=== PATIENT | male | born 1970 | race Caucasian/White ===

== ENCOUNTER → 2021-03-15 | Outpatient (CLI) | payer MEDICAID | LOC: COL.RAD 12:19 | DX: R59.0 Localized enlarged lymph nodes (principal) ==

== ENCOUNTER → 2023-02-17 | Outpatient (CLI) | payer MEDICAID | LOC: COL.RAD 14:00 | DX: R55 Syncope and collapse (principal); R42 Dizziness and giddiness | CPT/HCPCS: Q9967 ==

== ENCOUNTER 2023-08-03 10:54 | Day surgery (SDC) | payer MEDICAID ==
[~2023-08-03] VITALS: Ht 188 cm; Wt 91.0 kg
[2023-08-03] VITALS (8 sets, daily range): BP systolic 94–112; BP diastolic 58–91; PULSE 82–111; TEMP 98.7
[~2023-08-03 10:54] MED LIST: ADDERALL30 MG PO; ANTIVERT 12.512.5 MG PO; CYMBALTA 60MG60 MG PO; FENTANYL62.5 MCG/H TD; FLOMAX 0.40.4 MG/CAP PO; LUPRON; MEGACE 40MG40 MG/TAB PO; PREDNISONE 5MG5 MG PO; PRINIVIL5 MG PO; PROAMATINE2.5 MG PO; ROXICODONE 55 MG/TAB PO; VITAMIN D; WELLBUTRIN 75MG75 MG PO
[2023-08-03] MEDS ORDERED: 1/2 NS 1,000 ML IV SCH (11:30)
[2023-08-03] MEDS ORDERED: Clopidogrel 300 MG DOSE (75 mg x 4 tabs) PO ONE (12:15)
[2023-08-03 12:27] LABS: HEMOGLOBIN 11.4 g/dl (13.5-18.0); MEAN CELL VOLUME 94 fl (80.0-100.0); MEAN CORPUSCULAR HEMOGLOBIN 31 pg (27-31); MEAN CORPUSCULAR HGB CONC 34 g/dl (33.0-37.0); MEAN PLATELET VOLUME 9.5 fl (7.4-10.4); PLATELET COUNT 255 K/mm3 (130-400); RED BLOOD COUNT 3.63 M/mm3 (4.20-5.60); REDCELL DISTRIBUTION WIDTH-CV 14.9 % (11.5-14.5)
[2023-08-03] MEDS ORDERED: ZENZEDI PO (12:42)
[2023-08-03] MEDS ORDERED: PROAIR HFA0.09 MG/AC IH (12:43)
[2023-08-03 12:46] LABS: CALCIUM 8.9 mg/dL (8.4-10.2); CREATININE, serum 1.07 mg/dL (0.72-1.25); POTASSIUM 4.2 mmol/L (3.5-4.5)
[2023-08-03] MEDS ORDERED: LUPRON DEPOT45 MG SQ (12:50)
[2023-08-03] MEDS ORDERED: ANTIVERT 25MG25 MG PO (12:52)
[2023-08-03] MEDS ORDERED: D3-5050000 IU PO (12:53)
[2023-08-03 12:55] LABS: INR 1.1 (0.8-3.0); PROTHROMBIN TIME 11.9 SECONDS (9.7-12.8)
[2023-08-03] MEDS ORDERED: NORCO 325 MG-7.1 TAB PO (12:55)
[2023-08-03 12:58] LABS: PARTIAL THROMBOPLASTIN TIME 23.7 SECONDS (26.0-37.0)
--- NOTE | 2023-08-03 13:58 | NUR ---
See merge for all medication, assessment, intervention, and vitalsign times. Dr. Arriola advised at 1252 of patient's WBC and any other abnormal labs.
[2023-08-03] MEDS ORDERED: Midazolam 2 MG/2 ML VIAL IV SCH (14:00)
[2023-08-03] MEDS ORDERED: fentaNYL 50 MCG/ML 2 ML VIAL IV SCH (14:00)
[2023-08-03] MEDS ORDERED: Iohexol 350 - 100 ML VIAL INCOR ONE (14:03)
[2023-08-03] MEDS ORDERED: Heparin 1,000 UNITS/ML 10 ML Multi-Dose VIAL IA SCH (14:05)
--- NOTE | 2023-08-03 14:17 | NUR ---
Bedside report completed with Ryan MOHR. Insertion site reviewed, first set of vitals reviewed, fluids at 100 ml/hr via dial flow. Call light within reach, Ryan MOHR denies questions concerns at this time. First pressure was 89/77, re-assessed second pressure was 105/91.
[2023-08-03] MEDS ORDERED: Naloxone 0.4 MG/ML VIAL IV PRN (14:30)
[2023-08-03] MEDS ORDERED: Acetaminophen 500 MG TAB PO SCH (15:00)
--- NOTE | 2023-08-03 16:34 | NUR ---
Air was removed from TR band in 2 ml increments, no bleeding or complication. Rt radial puncture site dressed with folded 2x2 and gauze. DC instructions reviewed with pt and , both express understanding. Pt ate meal tray during recovery period. He is steady on feet in room using walking stick. IV DC'd, site wrapped with coban. He is assisted out to 's car by wheelchair with belongings.
== END 2023-08-03 16:44 | disposition home or self-care (01) ==
LOC: COL.CAR 10:54
PROVIDERS: Internal Medicine Interventional Cardiology
DX: I10 Essential (primary) hypertension (principal); R94.39 Abnormal result of other cardiovascular function study; R07.89 Other chest pain; R42 Dizziness and giddiness; C79.89 Secondary malignant neoplasm of other specified sites; C61 Malignant neoplasm of prostate; F17.210 Nicotine dependence, cigarettes, uncomplicated; Z79.899 Other long term (current) drug therapy
CPT/HCPCS: C1769; J1644; J2250; J3010; Q9967